=== PATIENT | female | born 1960 | race Caucasian/White ===

== ENCOUNTER → 2016-06-15 15:37 | Outpatient (CLI) | payer MEDICAID ==
[2015-01-20 15:35] VITALS: BMI 39.4
[~2016-06-15 15:37] MED LIST: AMITRIPTYLINE150 MG PO; CARAFATE1 G PO; CATAPRES0.1 MG PO; FERROCITE PLUS1 TAB PO; FOLIC ACID1 MG PO; HYDROCODONE-APA1 TAB PO; METHOTREXATE2.5 MG PO; NORVASC10 MG PO; PERCOCET 10/3251 TA1 PO; PRILOSEC20 MG PO; PROTONIX40 MG PO; REGLAN10 MG PO; WELLBUTRIN75 MG PO; [UNRECOGNIZED DRUG - OTHER] PO
[2016-06-15 16:02] LABS: BASOPHILS 0.6 % (0.0-2.0); EOSINOPHILS 1.1 % (0-7); HEMATOCRIT 41.9 % (36.0-48.0); HEMOGLOBIN 13.5 g/dL (12-16); IMMATURE GRANULOCYTES 0.1 % (0-5); LYMPHOCYTES 32.8 % (15-50); MCH 30.6 pg (26.0-34.0); MCHC 32.2 g/dL (31.0-37.0); MEAN PLATELET VOLUME 10.3 fL (7.4-10.4); MONOCYTES 7.4 % (2-11); PLATELET COUNT 329 10x3/uL (130-400); RBC 4.41 10x6/uL (4.00-5.40); RDW 15.4 % (11.5-14.5)
[2016-06-15 16:18] LABS: ALBUMIN 3.5 g/dL (3.4-5.0); BILIRUBIN - INDIRECT 0.12 mg/dL (0.00-1.00); BILIRUBIN - TOTAL 0.17 mg/dL (0.2-1.3); PROTEIN - SERUM 6.8 g/dL (6.4-8.2)
[2016-06-15 16:20] LABS: BILIRUBIN - DIRECT 0.05 mg/dL (0.00-0.30)
== END | disposition home or self-care (01) ==
LOC: D.LAB 08:30
PROVIDERS: Internal Medicine Gastroenterology
DX: K52.9 Noninfective gastroenteritis and colitis, unspecified (principal)

== ENCOUNTER → 2016-06-29 15:35 | Outpatient (CLI) | payer MEDICAID ==
[2015-01-20 15:35] VITALS: BMI 39.4
[2016-06-29 16:13] LABS: BASOPHILS 0.8 % (0.0-2.0); HEMATOCRIT 41.8 % (36.0-48.0); HEMOGLOBIN 13.3 g/dL (12-16); IMMATURE GRANULOCYTES 0.1 % (0-5); MCH 29.9 pg (26.0-34.0); MCHC 31.8 g/dL (31.0-37.0); MCV 93.9 fL (80.0-100.0); NEUTROPHILS 52.1 % (40-80); PLATELET COUNT 319 10x3/uL (130-400); RBC 4.45 10x6/uL (4.00-5.40); RDW 15.9 % (11.5-14.5); WBC 7.1 10x3/uL (4.8-10.8)
[2016-06-29 16:40] LABS: ALBUMIN 3.8 g/dL (3.4-5.0); BILIRUBIN - DIRECT 0.08 mg/dL (0.00-0.30); BILIRUBIN - INDIRECT 0.1 mg/dL (0.00-1.00); BILIRUBIN - TOTAL 0.18 mg/dL (0.2-1.3); PROTEIN - SERUM 7.1 g/dL (6.4-8.2)
== END | disposition home or self-care (01) ==
LOC: D.LAB 08:15
PROVIDERS: Internal Medicine Gastroenterology
DX: Z51.81 Encounter for therapeutic drug level monitoring (principal); Z79.899 Other long term (current) drug therapy; K52.9 Noninfective gastroenteritis and colitis, unspecified

== ENCOUNTER → 2016-07-13 15:57 | Outpatient (CLI) | payer MEDICAID ==
[2015-01-20 15:35] VITALS: BMI 39.4
[2016-07-13 16:14] LABS: BASOPHILS 1.2 % (0.0-2.0); EOSINOPHILS 1.8 % (0-7); HEMATOCRIT 42.5 % (36.0-48.0); HEMOGLOBIN 13.5 g/dL (12-16); IMMATURE GRANULOCYTES 0.1 % (0-5); LYMPHOCYTES 33.8 % (15-50); MCH 29.7 pg (26.0-34.0); MCHC 31.8 g/dL (31.0-37.0); MCV 93.6 fL (80.0-100.0); MEAN PLATELET VOLUME 10.8 fL (7.4-10.4); MONOCYTES 7.6 % (2-11); NEUTROPHILS 55.5 % (40-80); PLATELET COUNT 320 10x3/uL (130-400); RBC 4.54 10x6/uL (4.00-5.40); RDW 16.7 % (11.5-14.5); WBC 7.6 10x3/uL (4.8-10.8)
[2016-07-13 16:41] LABS: ALBUMIN 3.8 g/dL (3.4-5.0); BILIRUBIN - DIRECT 0.06 mg/dL (0.00-0.30); BILIRUBIN - INDIRECT 0.2 mg/dL (0.00-1.00); BILIRUBIN - TOTAL 0.26 mg/dL (0.2-1.3); PROTEIN - SERUM 7.3 g/dL (6.4-8.2)
== END | disposition home or self-care (01) ==
LOC: D.LAB 08:15
PROVIDERS: Internal Medicine Gastroenterology
DX: Z51.81 Encounter for therapeutic drug level monitoring (principal); Z79.899 Other long term (current) drug therapy; K52.9 Noninfective gastroenteritis and colitis, unspecified

== ENCOUNTER → 2016-07-27 16:06 | Outpatient (CLI) | payer MEDICAID ==
[2015-01-20 15:35] VITALS: BMI 39.4
[2016-07-27 16:31] LABS: BASOPHILS 0.5 % (0.0-2.0); EOSINOPHILS 0.8 % (0-7); HEMOGLOBIN 14.1 g/dL (12-16); IMMATURE GRANULOCYTES 0.1 % (0-5); LYMPHOCYTES 31.5 % (15-50); MCH 30.5 pg (26.0-34.0); MCV 95.2 fL (80.0-100.0); MEAN PLATELET VOLUME 10.6 fL (7.4-10.4); MONOCYTES 9.2 % (2-11); NEUTROPHILS 57.9 % (40-80); PLATELET COUNT 309 10x3/uL (130-400); RBC 4.62 10x6/uL (4.00-5.40); RDW 17.3 % (11.5-14.5); WBC 7.6 10x3/uL (4.8-10.8)
[2016-07-27 17:01] LABS: BILIRUBIN - INDIRECT 0.29 mg/dL (0.00-1.00); BILIRUBIN - TOTAL 0.33 mg/dL (0.2-1.3); PROTEIN - SERUM 7.1 g/dL (6.4-8.2)
[2016-07-27 17:12] LABS: BILIRUBIN - DIRECT 0.04 mg/dL (0.00-0.30)
== END | disposition home or self-care (01) ==
LOC: D.LAB 08:00
PROVIDERS: Internal Medicine Gastroenterology
DX: K52.9 Noninfective gastroenteritis and colitis, unspecified (principal); Z79.899 Other long term (current) drug therapy

== ENCOUNTER → 2016-08-10 16:07 | Outpatient (CLI) | payer MEDICAID ==
[2015-01-20 15:35] VITALS: BMI 39.4
[2016-08-10 16:25] LABS: BASOPHILS 0.9 % (0.0-2.0); EOSINOPHILS 0.8 % (0-7); HEMATOCRIT 42.5 % (36.0-48.0); HEMOGLOBIN 13.7 g/dL (12-16); IMMATURE GRANULOCYTES 0.2 % (0-5); LYMPHOCYTES 34.7 % (15-50); MCH 30.7 pg (26.0-34.0); MCHC 32.2 g/dL (31.0-37.0); MCV 95.3 fL (80.0-100.0); MEAN PLATELET VOLUME 10.1 fL (7.4-10.4); MONOCYTES 7.6 % (2-11); NEUTROPHILS 55.8 % (40-80); PLATELET COUNT 301 10x3/uL (130-400); RBC 4.46 10x6/uL (4.00-5.40); RDW 17.4 % (11.5-14.5); WBC 6.6 10x3/uL (4.8-10.8)
[2016-08-10 17:10] LABS: ALBUMIN 3.9 g/dL (3.4-5.0); BILIRUBIN - DIRECT 0.1 mg/dL (0.00-0.30); BILIRUBIN - INDIRECT 0.24 mg/dL (0.00-1.00); BILIRUBIN - TOTAL 0.34 mg/dL (0.2-1.3); PROTEIN - SERUM 7.1 g/dL (6.4-8.2)
== END | disposition home or self-care (01) ==
LOC: D.LAB 08:00
PROVIDERS: Internal Medicine Gastroenterology
DX: K52.9 Noninfective gastroenteritis and colitis, unspecified (principal); Z51.81 Encounter for therapeutic drug level monitoring; Z79.899 Other long term (current) drug therapy

== ENCOUNTER → 2016-08-24 15:09 | Outpatient (CLI) | payer MEDICAID ==
[2015-01-20 15:35] VITALS: BMI 39.4
[2016-08-24 15:41] LABS: BASOPHILS 0.6 % (0.0-2.0); EOSINOPHILS 1.3 % (0-7); HEMATOCRIT 41.5 % (36.0-48.0); HEMOGLOBIN 13.3 g/dL (12-16); IMMATURE GRANULOCYTES 0.1 % (0-5); LYMPHOCYTES 27.7 % (15-50); MCH 30.8 pg (26.0-34.0); MCV 96.1 fL (80.0-100.0); MEAN PLATELET VOLUME 10.6 fL (7.4-10.4); MONOCYTES 7.6 % (2-11); NEUTROPHILS 62.7 % (40-80); PLATELET COUNT 316 10x3/uL (130-400); RBC 4.32 10x6/uL (4.00-5.40); RDW 17.2 % (11.5-14.5)
[2016-08-24 16:37] LABS: ALBUMIN 3.9 g/dL (3.4-5.0); BILIRUBIN - DIRECT 0.08 mg/dL (0.00-0.30); BILIRUBIN - INDIRECT 0.24 mg/dL (0.00-1.00); BILIRUBIN - TOTAL 0.32 mg/dL (0.2-1.3)
== END | disposition home or self-care (01) ==
LOC: D.LAB 08:00
PROVIDERS: Internal Medicine Gastroenterology
DX: K52.9 Noninfective gastroenteritis and colitis, unspecified (principal); Z51.81 Encounter for therapeutic drug level monitoring; Z79.899 Other long term (current) drug therapy

== ENCOUNTER → 2016-09-07 15:55 | Outpatient (CLI) | payer MEDICAID ==
[2015-01-20 15:35] VITALS: BMI 39.4
[2016-09-07 16:25] LABS: BASOPHILS 0.5 % (0.0-2.0); EOSINOPHILS 3.1 % (0-7); HEMATOCRIT 40.5 % (36.0-48.0); HEMOGLOBIN 12.9 g/dL (12-16); IMMATURE GRANULOCYTES 0.1 % (0-5); LYMPHOCYTES 30.4 % (15-50); MCH 30.9 pg (26.0-34.0); MCHC 31.9 g/dL (31.0-37.0); MCV 96.9 fL (80.0-100.0); MEAN PLATELET VOLUME 10.6 fL (7.4-10.4); MONOCYTES 9.3 % (2-11); NEUTROPHILS 56.6 % (40-80); PLATELET COUNT 338 10x3/uL (130-400); RBC 4.18 10x6/uL (4.00-5.40); RDW 16.5 % (11.5-14.5); WBC 7.4 10x3/uL (4.8-10.8)
[2016-09-07 17:01] LABS: ALBUMIN 3.7 g/dL (3.4-5.0); BILIRUBIN - DIRECT 0.07 mg/dL (0.00-0.30); BILIRUBIN - INDIRECT 0.21 mg/dL (0.00-1.00); BILIRUBIN - TOTAL 0.28 mg/dL (0.2-1.3); PROTEIN - SERUM 6.7 g/dL (6.4-8.2)
== END | disposition home or self-care (01) ==
LOC: D.LAB 08:00
PROVIDERS: Internal Medicine Gastroenterology
DX: K52.9 Noninfective gastroenteritis and colitis, unspecified (principal); Z79.899 Other long term (current) drug therapy

== ENCOUNTER → 2016-10-12 15:44 | Outpatient (CLI) | payer MEDICAID ==
[2015-01-20 15:35] VITALS: BMI 39.4
[2016-10-12 15:58] LABS: BASOPHILS 0.7 % (0-2); EOSINOPHILS 1.6 % (0-7); HEMATOCRIT 41.8 % (36.0-48.0); HEMOGLOBIN 13.6 g/dL (12-16); IMMATURE GRANULOCYTES 0.1 % (0-5); LYMPHOCYTES 37.6 % (15-50); MCH 31.6 pg (26.0-34.0); MCHC 32.5 g/dL (31.0-37.0); MCV 97.2 fL (80.0-100.0); MEAN PLATELET VOLUME 10.3 fL (7.4-10.4); MONOCYTES 9.8 % (2-11); NEUTROPHILS 50.2 % (40-80); PLATELET COUNT 303 10x3/uL (130-400); RDW 15.4 % (11.5-14.5); WBC 7.1 10x3/uL (4.8-10.8)
[2016-10-12 16:21] LABS: ALBUMIN 3.8 g/dL (3.4-5.0); BILIRUBIN - DIRECT 0.07 mg/dL (0.00-0.30); BILIRUBIN - INDIRECT 0.22 mg/dL (0.00-1.00); BILIRUBIN - TOTAL 0.29 mg/dL (0.2-1.3); PROTEIN - SERUM 6.9 g/dL (6.4-8.2)
== END | disposition home or self-care (01) ==
LOC: D.LAB 08:00
PROVIDERS: Internal Medicine Gastroenterology
DX: K52.9 Noninfective gastroenteritis and colitis, unspecified (principal); Z51.81 Encounter for therapeutic drug level monitoring; Z79.899 Other long term (current) drug therapy

== ENCOUNTER → 2016-11-09 16:00 | Outpatient (CLI) | payer MEDICAID ==
[2015-01-20 15:35] VITALS: BMI 39.4
[2016-11-09 16:52] LABS: ALBUMIN 3.7 g/dL (3.4-5.0); BILIRUBIN - INDIRECT 0.32 mg/dL (0.00-1.00); BILIRUBIN - TOTAL 0.35 mg/dL (0.2-1.3); PROTEIN - SERUM 7.3 g/dL (6.4-8.2)
[2016-11-09 16:56] LABS: BILIRUBIN - DIRECT 0.03 mg/dL (0.00-0.30)
[2016-11-09 17:03] LABS: BASOPHILS 0.9 % (0-2); EOSINOPHILS 0.8 % (0-7); HEMATOCRIT 41.6 % (36.0-48.0); HEMOGLOBIN 13.5 g/dL (12-16); IMMATURE GRANULOCYTES 0.2 % (0-5); MCH 31.6 pg (26.0-34.0); MCHC 32.5 g/dL (31.0-37.0); MCV 97.4 fL (80.0-100.0); MEAN PLATELET VOLUME 11.1 fL (7.4-10.4); MONOCYTES 9.1 % (2-11); PLATELET COUNT 347 10x3/uL (130-400); RBC 4.27 10x6/uL (4.00-5.40); RDW 15.4 % (11.5-14.5); WBC 6.6 10x3/uL (4.8-10.8)
== END | disposition home or self-care (01) ==
LOC: D.LAB 08:00
PROVIDERS: Internal Medicine Gastroenterology
DX: K52.9 Noninfective gastroenteritis and colitis, unspecified (principal); Z79.899 Other long term (current) drug therapy

== ENCOUNTER → 2016-12-07 16:01 | Outpatient (CLI) | payer MEDICAID ==
[2015-01-20 15:35] VITALS: BMI 39.4
[2016-12-07 17:09] LABS: BASOPHILS 0.6 % (0-2); EOSINOPHILS 0.8 % (0-7); HEMATOCRIT 42.1 % (36.0-48.0); HEMOGLOBIN 13.8 g/dL (12-16); IMMATURE GRANULOCYTES 0.1 % (0-5); LYMPHOCYTES 33.7 % (15-50); MCH 31.9 pg (26.0-34.0); MCHC 32.8 g/dL (31.0-37.0); MCV 97.5 fL (80.0-100.0); MEAN PLATELET VOLUME 10.9 fL (7.4-10.4); MONOCYTES 7.9 % (2-11); NEUTROPHILS 56.9 % (40-80); PLATELET COUNT 335 10x3/uL (130-400); RBC 4.32 10x6/uL (4.00-5.40); RDW 15.4 % (11.5-14.5); WBC 7.1 10x3/uL (4.8-10.8)
[2016-12-07 17:14] LABS: BILIRUBIN - DIRECT 0.11 mg/dL (0.00-0.30); BILIRUBIN - INDIRECT 0.29 mg/dL (0.00-1.00); BILIRUBIN - TOTAL 0.4 mg/dL (0.2-1.3)
== END | disposition home or self-care (01) ==
LOC: D.LAB 08:00
PROVIDERS: Internal Medicine Gastroenterology
DX: K52.9 Noninfective gastroenteritis and colitis, unspecified (principal); Z79.899 Other long term (current) drug therapy

== ENCOUNTER → 2017-03-15 13:40 | Outpatient (CLI) | payer MEDICAID ==
[2015-01-20 15:35] VITALS: BMI 39.4
[2017-03-15 14:02] LABS: BASOPHILS 0.5 % (0-2); EOSINOPHILS 1.4 % (0-7); HEMATOCRIT 44.5 % (36.0-48.0); HEMOGLOBIN 14.8 g/dL (12-16); IMMATURE GRANULOCYTES 0.3 % (0-5); MCH 32.6 pg (26.0-34.0); MCHC 33.3 g/dL (31.0-37.0); MONOCYTES 6.5 % (2-11); NEUTROPHILS 62.3 % (40-80); PLATELET COUNT 321 10x3/uL (130-400); RBC 4.54 10x6/uL (4.00-5.40); WBC 8.6 10x3/uL (4.8-10.8)
[2017-03-15 14:34] LABS: ALBUMIN 3.9 g/dL (3.4-5.0); BILIRUBIN - DIRECT 0.07 mg/dL (0.00-0.30); BILIRUBIN - INDIRECT 0.22 mg/dL (0.00-1.00); BILIRUBIN - TOTAL 0.29 mg/dL (0.2-1.3); PROTEIN - SERUM 7.3 g/dL (6.4-8.2)
== END | disposition home or self-care (01) ==
LOC: D.LAB 08:00
PROVIDERS: Internal Medicine Gastroenterology
DX: K52.9 Noninfective gastroenteritis and colitis, unspecified (principal); Z51.81 Encounter for therapeutic drug level monitoring; Z79.899 Other long term (current) drug therapy

== ENCOUNTER → 2017-06-14 12:40 | Outpatient (CLI) | payer MEDICAID ==
[2015-01-20 15:35] VITALS: BMI 39.4
[2017-06-14 13:20] LABS: BASOPHILS 0.4 % (0-2); EOSINOPHILS 1.5 % (0-7); HEMATOCRIT 43.8 % (36.0-48.0); HEMOGLOBIN 14.2 g/dL (12-16); IMMATURE GRANULOCYTES 0.3 % (0-5); LYMPHOCYTES 36.9 % (15-50); MCH 31.5 pg (26.0-34.0); MCHC 32.4 g/dL (31.0-37.0); MCV 97.1 fL (80.0-100.0); MEAN PLATELET VOLUME 10.9 fL (7.4-10.4); MONOCYTES 9.3 % (2-11); NEUTROPHILS 51.6 % (40-80); PLATELET COUNT 303 10x3/uL (130-400); RBC 4.51 10x6/uL (4.00-5.40); RDW 13.3 % (11.5-14.5); WBC 7.2 10x3/uL (4.8-10.8)
[2017-06-14 13:31] LABS: ALBUMIN 3.8 g/dL (3.4-5.0); BILIRUBIN - DIRECT 0.07 mg/dL (0.00-0.30); BILIRUBIN - INDIRECT 0.18 mg/dL (0.00-1.00); BILIRUBIN - TOTAL 0.25 mg/dL (0.2-1.3); PROTEIN - SERUM 6.8 g/dL (6.4-8.2)
== END | disposition home or self-care (01) ==
LOC: D.LAB 08:00
PROVIDERS: Internal Medicine Gastroenterology
DX: K52.9 Noninfective gastroenteritis and colitis, unspecified (principal); Z51.81 Encounter for therapeutic drug level monitoring; Z79.899 Other long term (current) drug therapy

== ENCOUNTER → 2017-07-28 15:54 | Outpatient (CLI) | payer MEDICAID ==
[2015-01-20 15:35] VITALS: BMI 39.4
[2017-07-31 13:13] LABS: ANTIGLIADIN IGA 3 units (0-19); ANTIGLIADIN IGG 2 units (0-19)
[2017-08-01 06:14] LABS: ENDOMYSIAL ANTIBODY IGA Negative (Negative)
== END | disposition home or self-care (01) ==
LOC: D.LAB 08:15
PROVIDERS: Internal Medicine Gastroenterology
DX: K52.831 Collagenous colitis (principal); R19.7 Diarrhea, unspecified

== ENCOUNTER → 2017-09-13 14:10 | Outpatient (CLI) | payer MEDICAID ==
[2015-01-20 15:35] VITALS: BMI 39.4
[2017-09-13 14:48] LABS: BASOPHILS 0.7 % (0-2); EOSINOPHILS 1.2 % (0-7); HEMOGLOBIN 14.2 g/dL (12-16); IMMATURE GRANULOCYTES 0.1 % (0-5); LYMPHOCYTES 33.9 % (15-50); MCH 29.8 pg (26.0-34.0); MCHC 32.3 g/dL (31.0-37.0); MCV 92.2 fL (80.0-100.0); MEAN PLATELET VOLUME 10.8 fL (7.4-10.4); NEUTROPHILS 55.1 % (40-80); PLATELET COUNT 336 10x3/uL (130-400); RBC 4.77 10x6/uL (4.00-5.40); RDW 14.6 % (11.5-14.5); WBC 8.2 10x3/uL (4.8-10.8)
[2017-09-13 15:01] LABS: ALBUMIN 3.6 g/dL (3.4-5.0); BILIRUBIN - DIRECT 0.08 mg/dL (0.00-0.30); BILIRUBIN - INDIRECT 0.2 mg/dL (0.00-1.00); BILIRUBIN - TOTAL 0.28 mg/dL (0.2-1.3); PROTEIN - SERUM 7.3 g/dL (6.4-8.2)
== END | disposition home or self-care (01) ==
LOC: D.LAB 10:15
PROVIDERS: Internal Medicine Gastroenterology
DX: Z51.81 Encounter for therapeutic drug level monitoring (principal); Z79.899 Other long term (current) drug therapy; K50.90 Crohn's disease, unspecified, without complications

== ENCOUNTER → 2017-12-13 12:45 | Outpatient (CLI) | payer MEDICAID ==
[2015-01-20 15:35] VITALS: BMI 39.4
[2017-12-13 13:06] LABS: BASOPHILS 0.7 % (0-2); EOSINOPHILS 2.1 % (0-7); HEMATOCRIT 42.9 % (36.0-48.0); IMMATURE GRANULOCYTES 0.2 % (0-5); LYMPHOCYTES 27.4 % (15-50); MCH 29.7 pg (26.0-34.0); MCHC 32.6 g/dL (31.0-37.0); MCV 90.9 fL (80.0-100.0); MEAN PLATELET VOLUME 10.3 fL (7.4-10.4); MONOCYTES 9.6 % (2-11); PLATELET COUNT 333 10x3/uL (130-400); RBC 4.72 10x6/uL (4.00-5.40); RDW 14.7 % (11.5-14.5)
[2017-12-13 13:33] LABS: ALBUMIN 3.8 g/dL (3.4-5.0); BILIRUBIN - DIRECT 0.08 mg/dL (0.00-0.30); BILIRUBIN - INDIRECT 0.16 mg/dL (0.00-1.00); BILIRUBIN - TOTAL 0.24 mg/dL (0.2-1.3); PROTEIN - SERUM 6.9 g/dL (6.4-8.2)
== END | disposition home or self-care (01) ==
LOC: D.LAB 10:15
PROVIDERS: Internal Medicine Gastroenterology
DX: Z51.81 Encounter for therapeutic drug level monitoring (principal); Z79.899 Other long term (current) drug therapy; K50.90 Crohn's disease, unspecified, without complications

== ENCOUNTER → 2018-03-15 12:06 | Outpatient (CLI) | payer MEDICAID ==
[2015-01-20 15:35] VITALS: BMI 39.4
[2018-03-15 12:40] LABS: BASOPHILS 0.7 % (0-2); EOSINOPHILS 1.8 % (0-7); HEMATOCRIT 43.4 % (36.0-48.0); HEMOGLOBIN 14.3 g/dL (12-16); IMMATURE GRANULOCYTES 0.4 % (0-5); LYMPHOCYTES 33.3 % (15-50); MCH 29.8 pg (26.0-34.0); MCHC 32.9 g/dL (31.0-37.0); MCV 90.4 fL (80.0-100.0); MEAN PLATELET VOLUME 10.5 fL (7.4-10.4); MONOCYTES 9.1 % (2-11); NEUTROPHILS 54.7 % (40-80); PLATELET COUNT 367 10x3/uL (130-400); RDW 14.7 % (11.5-14.5); WBC 8.2 10x3/uL (4.8-10.8)
[2018-03-15 12:53] LABS: ALBUMIN 3.8 g/dL (3.4-5.0); BILIRUBIN - DIRECT 0.11 mg/dL (0.00-0.30); BILIRUBIN - INDIRECT 0.22 mg/dL (0.00-1.00); BILIRUBIN - TOTAL 0.33 mg/dL (0.2-1.3); PROTEIN - SERUM 7.3 g/dL (6.4-8.2)
== END | disposition home or self-care (01) ==
LOC: D.LAB 10:15
PROVIDERS: Internal Medicine Gastroenterology
DX: Z51.81 Encounter for therapeutic drug level monitoring (principal); Z79.899 Other long term (current) drug therapy; K50.90 Crohn's disease, unspecified, without complications

== ENCOUNTER → 2019-02-22 10:35 | Outpatient (CLI) | payer MEDICAID ==
[2015-01-20 15:35] VITALS: BMI 39.4
== END | disposition home or self-care (01) ==
LOC: D.LAB 10:35
PROVIDERS: ATTEND Internal Medicine Gastroenterology
DX: E83.52 Hypercalcemia (principal)

== ENCOUNTER → 2019-07-11 11:46 | Outpatient (CLI) | payer MEDICAID ==
[2015-01-20 15:35] VITALS: BMI 39.4
[2019-07-11 12:22] LABS: ALBUMIN 3.7 g/dL (3.4-5.0); ANION GAP 8.6 mmol/L (8-16); BILIRUBIN - TOTAL 0.31 mg/dL (0.2-1.3); CALCIUM 9.2 mg/dL (8.5-10.1); CARBON DIOXIDE 31.2 mmol/L (21.0-32.0); CREATININE - SERUM 0.9 mg/dL (0.6-1.3); POTASSIUM - SERUM 3.8 mmol/L (3.5-5.1); PROTEIN - SERUM 7.5 g/dL (6.4-8.2)
[2019-07-11 12:27] LABS: BASOPHILS 0.8 % (0-2); EOSINOPHILS 1.4 % (0-7); HEMATOCRIT 44.1 % (36.0-48.0); HEMOGLOBIN 14.2 g/dL (12-16); IMMATURE GRANULOCYTES 0.1 % (0-5); MCH 28.9 pg (26.0-34.0); MCHC 32.2 g/dL (31.0-37.0); MCV 89.6 fL (80.0-100.0); MEAN PLATELET VOLUME 10.7 fL (7.4-10.4); MONOCYTES 8.8 % (2-11); NEUTROPHILS 52.9 % (40-80); RBC 4.92 10x6/uL (4.00-5.40); RDW 14.7 % (11.5-14.5); WBC 7.9 10x3/uL (4.8-10.8)
[2019-07-11 12:30] LABS: PLATELET COUNT 424 10x3/uL (130-400)
[2019-07-11 13:38] LABS: ERYTHROCYTE SEDIMENTATION RATE 12 mm/hr (0-30)
== END | disposition home or self-care (01) ==
LOC: D.LAB 11:46
PROVIDERS: ATTEND Internal Medicine Gastroenterology
DX: K50.90 Crohn's disease, unspecified, without complications (principal)

== ENCOUNTER → 2020-01-09 11:51 | Outpatient (CLI) | payer MEDICAID ==
[2015-01-20 15:35] VITALS: BMI 39.4
[2020-01-09 12:10] LABS: BASOPHILS 0.4 % (0-2); EOSINOPHILS 2.1 % (0-7); HEMATOCRIT 44.7 % (36.0-48.0); IMMATURE GRANULOCYTES 0.3 % (0-5); LYMPHOCYTES 30.2 % (15-50); MCH 26.9 pg (26.0-34.0); MCHC 31.3 g/dL (31.0-37.0); MEAN PLATELET VOLUME 10.1 fL (7.4-10.4); MONOCYTES 7.6 % (2-11); NEUTROPHILS 59.4 % (40-80); PLATELET COUNT 425 10x3/uL (130-400); RDW 15.4 % (11.5-14.5); WBC 9.4 10x3/uL (4.8-10.8)
[2020-01-09 12:28] LABS: ALBUMIN 3.9 g/dL (3.4-5.0); ANION GAP 8.2 mmol/L (8-16); BILIRUBIN - TOTAL 0.41 mg/dL (0.2-1.3); CALCIUM 9.8 mg/dL (8.5-10.1); CARBON DIOXIDE 29.7 mmol/L (21.0-32.0); CREATININE - SERUM 0.9 mg/dL (0.6-1.3); POTASSIUM - SERUM 3.9 mmol/L (3.5-5.1); PROTEIN - SERUM 7.8 g/dL (6.4-8.2)
[2020-01-09 13:48] LABS: ERYTHROCYTE SEDIMENTATION RATE 12 mm/hr (0-30)
== END | disposition home or self-care (01) ==
LOC: D.LAB 11:51
PROVIDERS: ATTEND Internal Medicine Gastroenterology
DX: K50.10 Crohn's disease of large intestine without complications (principal)